=== PATIENT | male | born 1990 | race Caucasian/White ===

== ENCOUNTER 2017-07-09 12:06 | Emergency (ER) | payer BC ==
[~2017-07-09] VITALS: Ht 165.1 cm; Wt 67.0 kg
[2017-07-09 13:53] VITALS: BP 136/105
== END 2017-07-09 13:54 | disposition home or self-care (01) ==
LOC: EME 12:06
DX: S61.412A Laceration without foreign body of left hand, initial encounter (principal); W26.0XXA Contact with knife, initial encounter; Y93.G1 Activity, food preparation and clean up; Z23 Encounter for immunization
CPT/HCPCS: 99281; 99284